=== PATIENT | male | born 1945 | race Caucasian/White ===

== ENCOUNTER 2023-09-21 14:52 | Outpatient (RCR) | payer MEDICARE, SELFPAY ==
[2023-09-21 15:05] VITALS: BP 137/71
[2023-09-21] MEDS: ROCEPHIN 70 MG IV (15:10)
== END 2023-10-05 23:59 | disposition home or self-care (01) ==
LOC: OID 14:52
PROVIDERS: ATTENDING PHYSICIAN Student in an Organized Health Care Education/Training Program; FAMILY PHYSICIAN Internal Medicine
DX: E11.69 Type 2 diabetes mellitus with other specified complication (principal); M86.8X7 Other osteomyelitis, ankle and foot
CPT/HCPCS: 36573; 96365

== ENCOUNTER → 2023-09-27 10:30 | Outpatient (REF) | payer MEDICARE, SELFPAY | LOC: WOUND 10:30 | PROVIDERS: ATTENDING PHYSICIAN Surgery; REFERRING PHYSICIAN Internal Medicine | DX: L97.523 Non-pressure chronic ulcer of other part of left foot with necrosis of muscle (principal); M86.172 Other acute osteomyelitis, left ankle and foot; L97.513 Non-pressure chronic ulcer of other part of right foot with necrosis of muscle; L97.413 Non-pressure chronic ulcer of right heel and midfoot with necrosis of muscle; L97.423 Non-pressure chronic ulcer of left heel and midfoot with necrosis of muscle; E11.65 Type 2 diabetes mellitus with hyperglycemia; I73.9 Peripheral vascular disease, unspecified; I25.5 Ischemic cardiomyopathy; Z95.1 Presence of aortocoronary bypass graft; E11.3213 Type 2 diabetes mellitus with mild nonproliferative diabetic retinopathy with macular edema, bilateral; F33.42 Major depressive disorder, recurrent, in full remission; M86.9 Osteomyelitis, unspecified; N18.4 Chronic kidney disease, stage 4 (severe); E11.22 Type 2 diabetes mellitus with diabetic chronic kidney disease | CPT/HCPCS: 99214 ==

== ENCOUNTER → 2023-10-07 14:16 | Outpatient (REF) | payer MEDICARE, SELFPAY | LOC: WOUND 14:16 | PROVIDERS: ATTENDING PHYSICIAN Surgery; REFERRING PHYSICIAN Internal Medicine | DX: L97.523 Non-pressure chronic ulcer of other part of left foot with necrosis of muscle (principal); M86.172 Other acute osteomyelitis, left ankle and foot; L97.513 Non-pressure chronic ulcer of other part of right foot with necrosis of muscle; L97.413 Non-pressure chronic ulcer of right heel and midfoot with necrosis of muscle; L97.423 Non-pressure chronic ulcer of left heel and midfoot with necrosis of muscle; E11.52 Type 2 diabetes mellitus with diabetic peripheral angiopathy with gangrene; Z79.4 Long term (current) use of insulin; E11.65 Type 2 diabetes mellitus with hyperglycemia; I73.9 Peripheral vascular disease, unspecified; I25.5 Ischemic cardiomyopathy; E11.3213 Type 2 diabetes mellitus with mild nonproliferative diabetic retinopathy with macular edema, bilateral; F33.42 Major depressive disorder, recurrent, in full remission; M86.9 Osteomyelitis, unspecified; N18.4 Chronic kidney disease, stage 4 (severe); E11.22 Type 2 diabetes mellitus with diabetic chronic kidney disease; Z95.1 Presence of aortocoronary bypass graft | CPT/HCPCS: 99212 ==

== ENCOUNTER → 2023-10-14 14:56 | Outpatient (REF) | payer MEDICARE, SELFPAY | LOC: WOUND 14:56 | PROVIDERS: ATTENDING PHYSICIAN Surgery; REFERRING PHYSICIAN Internal Medicine | DX: L97.523 Non-pressure chronic ulcer of other part of left foot with necrosis of muscle (principal); M86.172 Other acute osteomyelitis, left ankle and foot; L97.513 Non-pressure chronic ulcer of other part of right foot with necrosis of muscle; L97.413 Non-pressure chronic ulcer of right heel and midfoot with necrosis of muscle; L97.423 Non-pressure chronic ulcer of left heel and midfoot with necrosis of muscle; E11.52 Type 2 diabetes mellitus with diabetic peripheral angiopathy with gangrene; Z79.4 Long term (current) use of insulin; E11.65 Type 2 diabetes mellitus with hyperglycemia; I73.9 Peripheral vascular disease, unspecified; I25.5 Ischemic cardiomyopathy; F33.42 Major depressive disorder, recurrent, in full remission; M86.9 Osteomyelitis, unspecified; N18.4 Chronic kidney disease, stage 4 (severe); E11.3213 Type 2 diabetes mellitus with mild nonproliferative diabetic retinopathy with macular edema, bilateral; E11.22 Type 2 diabetes mellitus with diabetic chronic kidney disease; Z95.1 Presence of aortocoronary bypass graft | CPT/HCPCS: 99213 ==

== ENCOUNTER → 2023-10-28 13:48 | Outpatient (REF) | payer MEDICARE, SELFPAY | LOC: WOUND 13:48 | PROVIDERS: ATTENDING PHYSICIAN Surgery; FAMILY PHYSICIAN Internal Medicine | DX: L97.523 Non-pressure chronic ulcer of other part of left foot with necrosis of muscle (principal); M86.172 Other acute osteomyelitis, left ankle and foot; L97.513 Non-pressure chronic ulcer of other part of right foot with necrosis of muscle; L97.413 Non-pressure chronic ulcer of right heel and midfoot with necrosis of muscle; L97.423 Non-pressure chronic ulcer of left heel and midfoot with necrosis of muscle; E11.65 Type 2 diabetes mellitus with hyperglycemia; I73.9 Peripheral vascular disease, unspecified; Z79.4 Long term (current) use of insulin; I25.5 Ischemic cardiomyopathy; Z95.1 Presence of aortocoronary bypass graft; E11.3213 Type 2 diabetes mellitus with mild nonproliferative diabetic retinopathy with macular edema, bilateral; F33.42 Major depressive disorder, recurrent, in full remission; M86.9 Osteomyelitis, unspecified; N18.4 Chronic kidney disease, stage 4 (severe); E11.22 Type 2 diabetes mellitus with diabetic chronic kidney disease | CPT/HCPCS: 99213 ==

== ENCOUNTER → 2023-11-04 13:52 | Outpatient (REF) | payer MEDICARE, SELFPAY | LOC: WOUND 13:52 | PROVIDERS: ATTENDING PHYSICIAN Surgery; FAMILY PHYSICIAN Internal Medicine | DX: L97.523 Non-pressure chronic ulcer of other part of left foot with necrosis of muscle (principal); M86.172 Other acute osteomyelitis, left ankle and foot; L97.513 Non-pressure chronic ulcer of other part of right foot with necrosis of muscle; L97.413 Non-pressure chronic ulcer of right heel and midfoot with necrosis of muscle; L97.423 Non-pressure chronic ulcer of left heel and midfoot with necrosis of muscle; E11.65 Type 2 diabetes mellitus with hyperglycemia; I73.9 Peripheral vascular disease, unspecified; I25.5 Ischemic cardiomyopathy; E11.3213 Type 2 diabetes mellitus with mild nonproliferative diabetic retinopathy with macular edema, bilateral; F33.42 Major depressive disorder, recurrent, in full remission; M86.9 Osteomyelitis, unspecified; N18.4 Chronic kidney disease, stage 4 (severe); E11.22 Type 2 diabetes mellitus with diabetic chronic kidney disease | CPT/HCPCS: 99213 ==

== ENCOUNTER → 2023-11-08 15:03 | Outpatient (REF) | payer MEDICARE, SELFPAY | LOC: CLAB 15:03 | PROVIDERS: ATTENDING PHYSICIAN Student in an Organized Health Care Education/Training Program | DX: M86.372 Chronic multifocal osteomyelitis, left ankle and foot (principal) | CPT/HCPCS: 87070; 87077; 87186; 87205 ==

== ENCOUNTER → 2023-11-15 14:24 | Outpatient (REF) | payer MEDICARE, SELFPAY | LOC: WOUND 14:24 | PROVIDERS: ATTENDING PHYSICIAN Surgery; FAMILY PHYSICIAN Internal Medicine | DX: L97.523 Non-pressure chronic ulcer of other part of left foot with necrosis of muscle (principal); M86.172 Other acute osteomyelitis, left ankle and foot; L97.513 Non-pressure chronic ulcer of other part of right foot with necrosis of muscle; L97.413 Non-pressure chronic ulcer of right heel and midfoot with necrosis of muscle; L97.423 Non-pressure chronic ulcer of left heel and midfoot with necrosis of muscle; E11.52 Type 2 diabetes mellitus with diabetic peripheral angiopathy with gangrene; Z79.4 Long term (current) use of insulin; E11.65 Type 2 diabetes mellitus with hyperglycemia; I73.9 Peripheral vascular disease, unspecified; I25.5 Ischemic cardiomyopathy; Z95.1 Presence of aortocoronary bypass graft; E11.3213 Type 2 diabetes mellitus with mild nonproliferative diabetic retinopathy with macular edema, bilateral; F33.42 Major depressive disorder, recurrent, in full remission; M86.9 Osteomyelitis, unspecified; N18.4 Chronic kidney disease, stage 4 (severe); E11.22 Type 2 diabetes mellitus with diabetic chronic kidney disease | CPT/HCPCS: 99213 ==

== ENCOUNTER → 2023-11-28 13:13 | Outpatient (REF) | payer MEDICARE, SELFPAY | LOC: WOUND 13:13 | PROVIDERS: ATTENDING PHYSICIAN Surgery; FAMILY PHYSICIAN Internal Medicine | DX: E11.52 Type 2 diabetes mellitus with diabetic peripheral angiopathy with gangrene (principal); L97.523 Non-pressure chronic ulcer of other part of left foot with necrosis of muscle; M86.172 Other acute osteomyelitis, left ankle and foot; L97.513 Non-pressure chronic ulcer of other part of right foot with necrosis of muscle; L97.413 Non-pressure chronic ulcer of right heel and midfoot with necrosis of muscle; L97.423 Non-pressure chronic ulcer of left heel and midfoot with necrosis of muscle; E11.65 Type 2 diabetes mellitus with hyperglycemia; I73.9 Peripheral vascular disease, unspecified; I25.5 Ischemic cardiomyopathy; Z95.1 Presence of aortocoronary bypass graft; E11.3213 Type 2 diabetes mellitus with mild nonproliferative diabetic retinopathy with macular edema, bilateral; F33.42 Major depressive disorder, recurrent, in full remission; M86.9 Osteomyelitis, unspecified; N18.4 Chronic kidney disease, stage 4 (severe); E11.22 Type 2 diabetes mellitus with diabetic chronic kidney disease | CPT/HCPCS: 99213 ==

== ENCOUNTER → 2024-09-28 11:50 | Outpatient (REF) | payer MEDICARE, SELFPAY ==
[2024-09-28 12:52] LABS: % Basophils 0.9 % (0-2); % Eosinophils 6.5 % (0-6); % Immature Granulocytes 1.2 % (0-0.5); % Monocytes 8.4 % (1.7-9.3); Absolute Basophils 0.1 10^3/uL (0-0.2); Absolute Eosinophils 0.6 10^3/uL (0-0.7); Absolute Immature Granulocytes 0.1 10^3/uL (0-0.05); Absolute Lymphocytes 1.2 10^3/uL (1.2-3.4); Absolute Monocytes 0.7 10^3/uL (0.1-0.6); Absolute Neutrophils 5.8 10^3/uL (1.4-6.5); Hematocrit 35.1 % (39.0-52.0); Hemoglobin 11.1 g/dL (13.0-18.0); Mean Corp Hgb Conc. 31.6 g/dL (33.0-37.0); Mean Corpuscular Hgb 29.4 pg (27.0-31.0); Mean Corpuscular Volume 92.9 fL (80.0-94.0); Mean Platelet Volume 9.3 fL (7.4-10.4); Nucleated Red Blood Cells % 0 % (-); Platelet Count 263 10^3/uL (130-400); Red Blood Cell Count 3.78 10^6/uL (4.70-6.10); Red Cell Dist. Width 15.6 % (11.5-14.5); White Blood Cell Count 8.5 10^3/uL (4.8-10.8)
[2024-09-28 13:02] LABS: INR 1.08; PT 14.3 Sec (11.4-14.6)
[2024-09-28 13:56] LABS: Blood Urea Nitrogen 39 mg/dl (9-20); Calcium 8.6 mg/dl (8.4-10.2); Carbon Dioxide 21 mmol/L (22-30); Chloride 104 mmol/L (98-107); Glucose 112 mg/dl (70-99); Phosphorus 4.4 mg/dl (2.5-4.5); Potassium 4.7 mmol/L (3.5-5.1); Sodium 135 mmol/L (135-145); eGFR 37.82
== END ==
LOC: REG 11:50
PROVIDERS: ATTENDING PHYSICIAN Specialist; FAMILY PHYSICIAN Physician Assistant Medical
DX: E11.621 Type 2 diabetes mellitus with foot ulcer (principal); N18.32 Chronic kidney disease, stage 3b; I70.223 Atherosclerosis of native arteries of extremities with rest pain, bilateral legs
CPT/HCPCS: 36415; 80048; 83970; 84100; 85025; 85610

== ENCOUNTER → 2025-01-10 10:50 | Outpatient (REF) | payer MEDICARE, SELFPAY | LOC: RAD 10:50 | PROVIDERS: ATTENDING PHYSICIAN Student in an Organized Health Care Education/Training Program; FAMILY PHYSICIAN Internal Medicine | DX: I70.223 Atherosclerosis of native arteries of extremities with rest pain, bilateral legs (principal) | CPT/HCPCS: 93925 ==

== ENCOUNTER → 2025-05-22 12:42 | Outpatient (REF) | payer MEDICARE, SELFPAY | LOC: RAD 12:42 | PROVIDERS: ATTENDING PHYSICIAN Student in an Organized Health Care Education/Training Program; FAMILY PHYSICIAN Internal Medicine | DX: I70.223 Atherosclerosis of native arteries of extremities with rest pain, bilateral legs (principal) | CPT/HCPCS: 93925 ==

== ENCOUNTER → 2025-08-31 10:59 | Outpatient (REF) | payer MEDICARE, SELFPAY | LOC: RCS 10:59 | PROVIDERS: ATTENDING PHYSICIAN Internal Medicine | DX: I25.5 Ischemic cardiomyopathy (principal) | CPT/HCPCS: 93306 ==